=== PATIENT | female | born 1950 | race Caucasian/White ===

== ENCOUNTER 2019-02-26 11:00 | Outpatient (RCR) | payer MEDICARE, OTHER, SELFPAY ==
--- NOTE | 2018-12-14 11:59 | HP.PTEVAL ---
Patient's Visit Information TYRA VASQUES is a 68 year old F referred to Physical Therapy by MOJGAN Reyna with a diagnosis of BACK PAIN, HIP PAIN AND LUMBAR RADICULOPATHY.. Date of Evaluation: 12/14/18 Physical Therapist: Ce Carrillo PT, Cert MDT - Visit Plan Frequency: 2-3x /Week Duration: 4-6 Weeks Plan: POSTURE CORRECTION/STRENGTHENING, INSTRUCTION IN APPROPRIATE BODY MECHANICS AND ACTIVITY MODIFICATIONS. DLS STARTING WITH A NEUTRAL SPINE PROGRESSING ROM TOLERATED. BESSY LE ROM, STRETCHING AND STRENGTHENING. HEP INSTRUCTION. - Subjective Findings: Work/Leisure: RETIRED. 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 Disability: NO. Present symptoms: LEFT LOW BACK, LEFT BUTTOCK, LEFT GROIN, LEFT THIGH AND LEFT HIP PAIN. INTERMITTENT LEFT HIP NUMBNESS. Present since: QUITE A FEW YEARS AGO. Pain Scale: WORST 9/10, LEAST 6/10. Currently: 7-8/10. Commenced as a result of: NO APPARENT REASON. Symptoms at onset: LOW BACK. Worse: LYING ON LEFT SIDE - FEELS LIKE A HARD BALL IN HIP. PUSH MOWING, WALKING, SOMETIMES JUST SITTING, RISING FROM SITTING, GOING UP STEPS. Better: HEATING PAD ON BACK AND HIP, OINTMENTS, PAIN MEDICINE. Disturbed sleep: YES. Previous history/Previous treatment: PAIN MGMT WITH DR. ROWAN FOR HANK'S THAT SEEMED TO HELP IN THE PAST. A LOT OF ORAL PAIN MEDICINES. CORTISONE INJECTION IN HIP A COUPLE YEARS AGO. PHYSICAL THERAPY - DOESN'T THINK IT HELPED BUT HAS BEEN A LONG TIME AGO. H/O CHIROPRACTIC TREATMENTS TOO BUT HAS BEEN A WHILE. NO BACK SPECIALIST CONSULTS OR SURGERY. FALL ABOUT A YEAR AGO - NO TREATMENT BUT DID FALL ON BACK AND KNOCKED HEAD OPEN - STATES IT WAS WET OUT AND SHE SLIPPED. Coughing/sneezing/straining: NEGATIVE. Gait: PATIENT REPORTS SHE HAS TO WALK SLOW BECAUSE HER HIP HURTS. DISTANCE LIMITED. Difficulty initiating urinatin: NO. Accidents: NO. Unexplained weight loss: NO. Imaging: NONE RECENT THAT PATIENT CAN REMEMBER. PMH: FIBROMYALGIA, STAGE 3 KIDNEY FAILURE, H/O OF NECK PAIN, MIGRAINES, ON MEDS FOR BLADDER, DEPRESSION. Recent major surgery: JUL 2018 HERNIA OPERATION. OTHER: ANOTHER INJECTION PENDING 01/09/19. - Objective Sitting/Standing Posture: POOR. Lordosis: REDUCED. Lateral shift: NO. Relevant shift: N/A. Active Correction of posture: NE. Other Observations: INDEP SLOW GAIT INTO PT WITHOUT ANY ASSISTIVE DEVICES OR LOB. UNABLE TO TRANSFER INDEP'LY FROM SIT TO STAND WITHOUT UE ASSIST. PATIENT BECAME TEARFUL WHEN TALKING ABOUT HOW MUCH PAIN SHE HAS AND HOW MUCH IT IS LIMITING HER ACTIVIES AND SOCIAL LIFE. Motor deficit: BESSY LE WEAKNESS LEFT > RIGHT: RIGHT HIP 4/5, KNEE EXT 4/5, KNEE FLEX 4/5, ANKLE 5/5. LEFT HIP 4-/5, KNEE 4-/5, ANKLE 5/5. Sensory deficit: NO. ROM deficit: BESSY LE'S WFL. Reflexes: UNABLE TO ELICIT BESSY LE DTR'S. Dural Signs: POSITIVE LEFT LE. Lumbar mvmt loss: flex - MIN. ext - PER. R SG - MOD. L SG - MOD. Core strength: POOR. Palpation: TENDERNESS WITH PALPATION OF LOWER THORACIC SPINE, LEFT PARASPINALS, LEFT BUTTOCK, AND LEFT HIP REGIONS. OTHER: SLS X APPROX 5 SEC EACH WITHOUT UE ASSIST. - Goals Goal 1:: DECREASE C/O LOW BACK AND LEFT HIP PAIN. Goal Time Frame: 4-6 Weeks Goal 2:: IMPROVE LIFTING, WALKING, SITTING, STANDING, SOCIAL LIFE, TRAVEL, HOMEMAKING AND SLEEP FUNCTION Goal Time Frame: 4-6 Weeks Goal 3:: INSTRUCT IN PROPHYLAXIS Goal Time Frame: 4-6 Weeks - Rehabilitation Potential Rehabilitation Potential: Fair - Anticipated Interventions Patient/Client Instruction: Educate patient on: Condition, Plan of Care, Risk Factors, Benefits of Fitness Program For the Purpose of:: To improve self management Therapeutic Exercise to Include: Strength training, Body mechanics, Postural training, Flexibilty training, In an aquatic setting, Dynamic Lumbar Stabilization For the Purpose of:: To decrease pain, To increase ROM, To improve muscle performance and motor function, To increase tolerance to activity/condition/position, To improve ability of physical actions for home/community/work/leisure Thank you for the opportunity to evaluate your patient. For Medicare and Medicare HMO plans, please review the plan of care and approve it. It will need to be FAXED BACK to us at [phone] for Medicare purposes. For Medicare only, by signing this I certify the plan of care. Please let me know if there are questions or concerns regarding this plan of care. Physician Signature: Date:
--- NOTE | 2019-01-17 12:13 | HP.PTREVAL_ITS ---
Lana Ramirez, ANA ROSA-C, It has been my pleasure to treat TYRA VASQUES over the last 9 visits for BACK PAIN, HIP PAIN AND LUMBAR RADICULOPATHY.. Please see the progress note below for an update on the physical therapy plan of care! Subjective: PATIENT REPORTS SHE IS BETTER. SHE REPORTS THE PAIN ISN'T BAD. SHE STATES SHE CAN DO MORE AND GO LONGER BEFORE NEEDING TO TAKE BREAKS. HIP X- RAY IS PENDING. STILL HAVING LEFT GROIN PAIN. 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 PATIENT REPORTS SHE ENJOYS THE WATER THERAPY. Objective/Function: PATIENT IS IMPROVING AND CONSIDERING A H&w MEMBERSHIP WHEN SHE IS DONE WITH PT. SHE IS A GOOD CANDIDATE TO TRY TO TRANSITION TO LAND EX. UPON EXAM TODAY SHE DEMONSTRATES. INDEP SLOW GAIT INTO PT WITHOUT ANY ASSISTIVE DEVICES OR LOB. ABLE TO TRANSFER INDEP'LY FROM SIT TO STAND WITHOUT UE ASSIST NOW. Motor deficit: BESSY LE WEAKNESS LEFT > RIGHT BUT IMPROVED: RIGHT HIP 4/5, KNEE EXT 5/5, KNEE FLEX 5/5, ANKLE 5/5. LEFT HIP 4-/5, KNEE 4/5, ANKLE 5/5. Sensory deficit: NO. ROM deficit: BESSY LE'S WFL. Dural Signs: MILDLY POSITIVE LEFT LE. Lumbar mvmt loss: flex - MIN. ext - PER. R SG - MOD. L SG - MOD. Core strength: POOR. Palpation: TENDERNESS WITH PALPATION OF LOWER THORACIC SPINE, LEFT PARASPINALS, LEFT BUTTOCK, AND LEFT HIP REGIONS. OTHER: SLS X APPROX 15 SEC EACH WITHOUT UE ASSIST NOW. LUMBAR OSWESTRY HAS IMPROVED FROM 22 TO 17 Plan Plan: CONT PT TRANSITIONING TO LAND PT 2-3 TIMES A WEEK X 4-6 WEEKS FOR POSTURE CORRECTION/STRENGTHENING, INSTRUCTION IN APPROPRIATE BODY MECHANICS AND ACTIVITY MODIFICATIONS. DLS STARTING WITH A NEUTRAL SPINE PROGRESSING ROM TOLERATED. BESSY LE ROM, STRETCHING AND STRENGTHENING. HEP INSTRUCTION. HELP PATIENT TRANSITION TO INDEP GYM PROGRAM WITH MEMBERSHIP. Goals Goal 1:: DECREASE C/O LOW BACK AND LEFT HIP PAIN. Goal Time Frame: 4-6 Weeks Goal Progress: Progressing Goal 2:: IMPROVE LIFTING, WALKING, SITTING, STANDING, SOCIAL LIFE, TRAVEL, HOMEMAKING AND SLEEP FUNCTION Goal Time Frame: 4-6 Weeks Goal Progress: Progressing Goal 3:: INSTRUCT IN PROPHYLAXIS Goal Time Frame: 4-6 Weeks Goal Progress: Progressing Anticipated Interventions Patient/Client Instruction: Educate patient on: Condition, Plan of Care, Risk Factors, Benefits of Fitness Program For the Purpose of:: To improve self management Therapeutic Exercise to Include: Strength training, Body mechanics, Postural training, Flexibilty training, In an aquatic setting, Dynamic Lumbar Stabilization For the Purpose of:: To decrease pain, To increase ROM, To improve muscle performance and motor function, To increase tolerance to activity/condition/position, To improve ability of physical actions for home/community/work/leisure Please do not hesitate to contact me at [phone] by phone or if you have questions or concerns regarding this new plan of care! Sincerely, Ce Carrillo, PT, Cert MDT
--- NOTE | 2019-04-10 17:40 | HP.PT.NRP ---
HP - Discharge Summary (1) - Patient Information TYRA VASQUES was seen in my office for initial evaluation on 12/14/18. The following Plan of Care was established for this patient: Initial Frequency: 2-3x /Week Initial Duration: 4-6 Weeks - Anticipated Interventions Patient/Client Instruction: Educate patient on: Condition, Plan of Care, Risk Factors, Benefits of Fitness Program For the Purpose of:: To improve self management Therapeutic Exercise to Include: Strength training, Body mechanics, Postural training, Flexibilty training, In an aquatic setting, Dynamic Lumbar Stabilization For the Purpose of:: To decrease pain, To increase ROM, To improve muscle performance and motor function, To increase tolerance to activity/condition/position, To improve ability of physical actions for home/community/work/leisure This patient was last seen in our office 02/28/19. Pertinent comments regarding their Physical therapy will appear below: This patient has not returned to Physical Therapy and is appropriate to return to MD for further follow-up as needed. At this point I will be discontinuing this patient from physical therapy. I would be happy to see this patient again in the future if found appropriate by the physician. Thank you! Ce Carrillo, PT, Cert MDT
== END 2019-02-26 19:00 | disposition home or self-care (01) ==
LOC: PT 11:00
PROVIDERS: Family Provider Internal Medicine; PCP Internal Medicine; Referring Provider Nurse Practitioner Family; Visit Provider Nurse Practitioner Family
DX: M54.5 Low back pain (principal); M25.552 Pain in left hip; M54.16 Radiculopathy, lumbar region; M46.96 Unspecified inflammatory spondylopathy, lumbar region; M79.10 Myalgia, unspecified site
CPT/HCPCS: 97113; 97162; 97530

== ENCOUNTER 2019-05-07 14:15 | Emergency (ER) | payer MEDICARE, OTHER, SELFPAY ==
[2019-05-07 14:17] VITALS: BP 160/66; PULSE 97; RESP 22; TEMP 36.8; O2SAT 97; BMI 36.4
--- NOTE | 2019-05-07 15:07 | EKG12_ITS ---
Test Reason : SOB Blood Pressure : / mmHG Vent. Rate : 091 BPM Atrial Rate : 091 BPM P-R Int : 158 ms QRS Dur : 078 ms QT Int : 368 ms P-R-T Axes : 039 055 063 degrees QTc Int : 452 ms Normal sinus rhythm Normal ECG Confirmed by AUGUSTINA GONZALEZ, CODY ([id number]), material expeditor INES GOMEZ ([id number]) on 05/08/2019 12:08:42 PM Referred By: Confirmed By:CODY JACKMAN MD
--- NOTE | 2019-05-07 15:08 | ED.DCSUM_ITS ---
- ER Visit Summary Date of Service: 05/07/19 Chief Complaint: Shortness of breath History of Present Illness: The patient is a 68 F who states that for more than a week she has had a cough and shortness of breath. Symptoms began with 3 days of sore throat on she developed a cough. Last Monday she went to an urgent care and had an x-ray was told stuff in the lung. She states that she was given an inhaler which she has been using quite every 4 hours, Mucinex, and 5 days of prednisone. She is unsure of the dose of prednisone that she was given. She finished that prednisone around Monday. States that she occasionally has phlegm. She has decreased sleep due to the cough as well as stress inconti nence. Denies any known lung conditions such as asthma or COPD. Non-smoker. She denies any fevers. Physical Examination: Afebrile 160/66 heart rate of 97 respirations are 22 pulse ox 97% on room air Gen: Well-nourished well-developed Head: Normocephalic atraumatic Eyes: Perrl EOMI ENT: TMs clear no rhinorrhea moist mucous membranes Neck: Supple no lymphadenopathy no JVD nontender CVS: Regular rate rhythm no murmurs normal S1-S2 Respiratory: Patient appears slightly tachypneic at rest she has bilateral rhonchi and chest nontender Abdomen: Soft nontender nondistended normal bowel sounds no masses Back: Nontender Extremity: Nontender no edema Skin: Normal color no rash Neuro: alert orientated ?3 CN II-XII intact normal strength sensation Psych: Normal affect normal mood Test Results: Chest x-ray is negative. CBC and chemistries negative. Emergency Department Course and Treatment: Ambulated without any desaturation and tolerated walking well. Was started on 60 mg of prednisone for 5 days azithromycin continued albuterol and Mucinex. Will up with primary care Impression: 1. Acute bronchitis with bronchospasm This note was generated with [employer] dictation software. It may contain incorrect words, spelling, and punctuation that were not noted in review of the chart pr ior to signing ED Disposition - Plan for ED Patient: Disposition: Home or Assisted Living Instructions: BRONCHITIS, Antiobiotic Treatment (Adult) Prescriptions: Prednisone [Deltasone] 60 mg PO DAILY #15 tab Prescription Printed Azithromycin [Zithromax Z-Andrés] 250 mg PO UD #1 box Prescription Printed Referrals: Gray Bright MD [Primary Care Provider] - 3-5 Days
[2019-05-07] MEDS: Albuterol 2.5 MG/3 ML VIAL.NEB. INHALATION ×3 (15:20→15:21)
[2019-05-07] MEDS: Ipratropium/Albuterol Sulfate 3 ML AMPUL.NEB INHALATION (15:21)
[2019-05-07 15:24] VITALS: PULSE 92; RESP 24
[2019-05-07 15:28] LABS: Absolute Lymphocyte Count 2.44 X10^3/uL (0.83-4.51); Absolute Neutrophil Count 4.3 X10^3/uL (2.0-7.7); Basophil# 0.08 X10^3/uL; Eosinophil# 0.26 X10^3/uL; Eosinophils% 3.4 % (0-5); Hematocrit 38.4 % (37-47); Hemoglobin 12.9 g/dL (12.0-15.0); Lymphocyte # 2.44 X10^3/ul (4.0); Lymphocyte % 31.6 % (19-41); Mean Corp Hgb Conc 33.6 g/dL (32-36); Mean Corpuscular Hgb 29.3 pg (27.0-32.0); Mean Corpuscular Volume 87.1 fL (81-99); Mean Platelet Vol. 9.1 fl (6.2-12.0); Monocyte# 0.55 X10^3/uL; Monocyte% 7.1 % (0-10); NRBC Flagged by Analyzer 0 % (0-5); Neutrophil # 4.29 X10^3/uL (2.7-7.7); Neutrophil % 55.7 % (47-70); Platelet Count 227 K/mm3 (150-450); RBC Distribution Width CV 14.2 % (11.6-14.6); RBC Distribution Width SD 45.2 fl (35.1-43.9); Red Blood Count 4.41 M/mm3 (4.2-5.4); White Blood Count 7.7 K/mm3 (4.4-11.0)
[2019-05-07 15:44] LABS: Anion Gap 6 (5-15); BUN 18 mg/dL (7-18); BUN/Creat Ratio 18.8 RATIO (10-20); Calcium,Total 8.7 mg/dL (8.5-10.1); Chloride 114 mmol/L (98-107); Creatinine, Serum 0.96 mg/dL (0.55-1.02); EST Glomerular Filtration Rate 62 mL/min (>60); Est Glom Filt Rate - Afr Amer 75 mL/min (>60); Estimated Creatinine Clearance 42.32 ml/min; Glucose 94 mg/dL (74-106); Potassium 3.4 mmol/L (3.5-5.1); Sodium Level 144 mmol/L (136-145)
--- NOTE | 2019-05-07 16:00 | RAD_ITS ---
STUDY: X-RAY CHEST REASON FOR EXAM: Female, 68 years old. Cough, shortness of breath TECHNIQUE: PA and lateral views of the chest. COMPARISON: None. FINDINGS: The lungs are clear and expanded. There is no demonstrated pleural abnormality. Normal size heart. Normal mediastinum and phyllis. Normal visualized pulmonary arteries. Normal visualized aortic arch and descending thoracic aorta. Normal visualized thoracic spine. Normal visualized ribs, clavicles, and shoulders. There is no demonstrated abnormality of the visualized soft tissue structures of the upper abdomen. RAD/Chest PA and Lateral IMPRESSION: Normal x-ray examination of the chest. Electronically Signed: Tamir Keyes MD at 16:16 EDT Tel , Service support ,
[2019-05-07 16:42] VITALS: O2SAT 98
[2019-05-07 16:46] VITALS: PULSE 98; RESP 18; O2SAT 98
[2019-05-07 17:24] VITALS: BP 129/52; PULSE 93; RESP 20; O2SAT 96
== END 2019-05-07 17:47 | disposition home or self-care (01) ==
PROVIDERS: Emergency Provider Emergency Medicine; Family Provider Internal Medicine; PCP Internal Medicine
DX: J20.9 Acute bronchitis, unspecified (principal); F32.9 Major depressive disorder, single episode, unspecified; Z79.899 Other long term (current) drug therapy
CPT/HCPCS: 71046; 80048; 85025; 93005; 94640; 99285; A4216

== ENCOUNTER → 2022-08-11 | Outpatient (CLI) | payer MEDICARE, SELFPAY ==
[2022-08-11 13:34] LABS: Absolute Lymphocyte Count 2.08 X10^3/uL (0.83-4.51); Absolute Neutrophil Count 4.5 X10^3/uL (2.0-7.7); Basophil# 0.06 X10^3/uL; Basophil% 0.8 % (0-1); Eosinophil# 0.24 X10^3/uL; Eosinophils% 3.2 % (0-5); Hematocrit 42.4 % (37-47); Hemoglobin 13.7 g/dL (12.0-15.0); Lymphocyte # 2.08 X10^3/ul (0.83-4.51); Lymphocyte % 27.9 % (19-41); Mean Corp Hgb Conc 32.3 g/dL (32-36); Mean Corpuscular Hgb 29.1 pg (27.0-32.0); Mean Platelet Vol. 9.5 fl (6.2-12.0); Monocyte# 0.49 X10^3/uL; Monocyte% 6.6 % (0-10); NRBC Flagged by Analyzer 0 % (0-5); Neutrophil # 4.54 X10^3/uL (2.7-7.7); Neutrophil % 60.8 % (47-70); Platelet Count 260 K/mm3 (150-450); RBC Distribution Width CV 14.1 % (11.6-14.6); RBC Distribution Width SD 46.7 fl (35.1-43.9); Red Blood Count 4.71 M/mm3 (4.2-5.4); White Blood Count 7.5 K/mm3 (4.4-11.0)
[2022-08-11 13:37] LABS: Erythrocyte Sedimentation Rate 19 mm/hr (0-30)
[2022-08-11 13:48] LABS: ALB/GLOB Ratio 0.9 RATIO (0.9-2.4); AST(SGOT) 21 U/L (15-37); Alanine Aminotransfer ALT/SGPT 27 U/L (13-56); Albumin, Serum 3.6 g/dL (3.2-5.0); Alkaline Phosphatase 97 U/L (45-117); Anion Gap 6 (5-15); BUN 24 mg/dL (7-18); BUN/Creat Ratio 23.5 RATIO (10-20); CRP 7.09 mg/L (0.0-3.0); Calcium,Total 9.3 mg/dL (8.5-10.1); Chloride 112 mmol/L (98-107); Cholesterol 170 mg/dL (200); Creatinine, Serum 1.02 mg/dL (0.55-1.02); EST Glomerular Filtration Rate 57 mL/min (>60); Est Glom Filt Rate - Afr Amer 69 mL/min (>60); Glucose 95 mg/dL (74-106); High Density Lipoprotein 50 mg/dL; Magnesium 2.2 mg/dL (1.6-2.6); Potassium 3.8 mmol/L (3.5-5.1); Protein, Total 7.6 g/dL (6.4-8.2); Sodium Level 142 mmol/L (136-145); Triglycerides 148 mg/dL; Very Low Density Lipoprotein 30 mg/dL (5-40)
== END | disposition home or self-care (01) ==
LOC: LAB 11:17
DX: E78.5 Hyperlipidemia, unspecified (principal); M15.0 Primary generalized (osteo)arthritis
CPT/HCPCS: 36415; 80053; 80061; 83735; 85025; 85652; 86140